=== PATIENT | male | born 2000 | race Hispanic/Latino ===

== ENCOUNTER 2023-07-13 16:02 | Emergency (ER) | payer OTHER ==
--- NOTE | 2023-07-13 17:36 | RAD REPORT ---
EXAM DESCRIPTION: US - Extremity Venous Uni Ltd - 07/13/2023 5:27 pm CLINICAL HISTORY: PAIN Leg swelling and edema. COMPARISON: <Comparisons> FINDINGS: Right lower extremity venous system was interrogated with Doppler technique. Normal flow, compressibility and augmentation was noted. There is no DVT present. IMPRESSION: No evidence of right lower extremity deep venous thrombosis.
--- NOTE | 2023-07-13 17:43 | ER ---
Nurse's Notes [facility] Name: Abraham Rojas Age: 23 yrs Sex: Male : 2000 Arrival Date: 07/13/2023 Time: 16:02 Bed 9 Private MD: Diagnosis: Right calf pain Presentation: 07/13 16:17 Chief complaint: Patient states: right calf pain onset yesterday morning.. Pt had cm10 ACL/MCL surgery 4 weeks ago. Coronavirus screen: Client denies travel out of the [place] in the last 14 days. At this time, the client does not indicate any symptoms associated with coronavirus-19. Ebola Screen: Patient denies travel to an Ebola-affected area in the 21 days before illness onset. No symptoms or risks identified at this time. Initial Sepsis Screen: Does the patient meet any 2 criteria? No. Patient's initial sepsis screen is negative. Does the patient have a suspected source of infection? No. Patient's initial sepsis screen is negative. Risk Assessment: Do you want to hurt yourself or someone else? Patient reports no desire to harm self or others. Onset of symptoms was July 13, 2023. 16:17 Method Of Arrival: Wheelchair cm10 16:17 Acuity: [place] 3 cm10 Historical: - Allergies: 16:19 No Known Allergies; cm10 - Home Meds: 16:19 None [Active]; cm10 - PMHx: 16:19 None; cm10 - PSHx: 16:19 ACL/ MCL Repair- Right knee; cm10 - Immunization history:: Adult Immunizations. - Social history:: Smoking status: Patient denies any tobacco usage or history of. Screenin:24 [facility] ED Fall Risk Assessment (Adult) History of falling in the last 3 months, ap3 including since admission No falls in past 3 months (0 pts) Confusion or Disorientation No (0 pts) Intoxicated or Sedated No (0 pts) Impaired Gait Yes (1 pt) Mobility Assist Device Used Yes (1 pt) Altered Elimination No (0 pt) Score/Fall Risk Level 0 - 2 = Low Risk. Abuse screen: Denies threats or abuse. Nutritional screening: No deficits noted. Tuberculosis screening: No symptoms or risk factors identified. Assessment: 16:24 General: Appears in no apparent distress. Behavior is calm, cooperative, appropriate ap3 for age. Pain: Complains of pain in right leg. Neuro: Level of Consciousness is awake, alert, obeys commands, Oriented to person, place, time, situation. Cardiovascular: Patient's skin is warm and dry. Respiratory: Airway is patent Respiratory effort is even, unlabored, Respiratory pattern is regular, symmetrical. Musculoskeletal: Range of motion: limited in right knee. Vital Signs: 16:17 BP 130 / 81; Pulse 81; Resp 18; Temp 98.1(TE); Pulse Ox 99% ; Weight 129.27 kg; Height cm10 5 ft. 7 in. ; Pain 4/10; 16:17 Body Mass Index 44.64 (129.27 kg, 170.18 cm) cm10 16:17 Pain Scale: Adult cm10 ED Course: 16:03 Patient arrived in ED. rg4 16:19 Светлана Laureano, RN is Primary Nurse. ap3 16:19 Triage completed. cm10 16:20 [facility]oshni Alaniz [facility]C [facility]. kb 16:20 Ander Chacon MD is Attending Physician. kb 16:20 Arm band placed on Patient placed in an exam room. cm10 16:25 Patient has correct armband on for positive identification. Bed in low position. Call ap3 light in reach. Adult w/ patient. Pulse ox on. NIBP on. 17:29 US Extremity Venous Unilateral Ltd In Process Unspecified. EDMS 18:13 Provided Education on: on education. ap3 18:13 No provider procedures requiring assistance completed. Patient did not have IV access ap3 during this emergency room visit. Administered Medications: No medications were administered Medication: 18:13 VIS not applicable for this client. ap3 Outcome: 17:43 Discharge ordered by . kb 18:13 Discharged to home with crutches, with family. ap3 18:13 Condition: good 18:13 Discharge instructions given to patient, family, Instructed on discharge instructions, follow up and referral plans. Demonstrated understanding of instructions, follow-up care. 18:13 Patient left the ED. ap3 Signatures: Dispatcher [employer] EDMS Roshni Alaniz FNP-C FNP-Ckb Garcia, Rubi rg4 Светлана Laureano RN RN ap3 Juliann Cruz RN RN cm10
--- NOTE | 2023-07-13 17:43 | EDPHYS ---
Physician Documentation [facility] Name: Abraham Rojas Age: 23 yrs Sex: Male : 2000 Arrival Date: 07/13/2023 Time: 16:02 Bed 9 Private MD: BRITTANY Physician Ander Chacon HPI: 07/13 17:22 This 23 yrs old Male presents to ER via Wheelchair with complaints of Post kb Surgical Pain. 17:22 The patient presents with pain. The complaints affect the right calf. Context: the kb patient is able to ambulate. Onset: The symptoms/episode began/occurred yesterday. Modifying factors: The symptoms are alleviated by nothing. the symptoms are aggravated by nothing. Associated signs and symptoms: The patient has no apparent associated signs or symptoms. Treatment prior to arrival includes: mann wrap. Severity of symptoms: At their worst the symptoms were mild, moderate, in the emergency department the symptoms are unchanged. The patient has not experienced similar symptoms in the past. The patient has been recently seen by a physician:. Patient reports he had knee surgery 4 weeks ago and developed calf pain yesterday. Called his orthopedist this morning and was told to come to the ER for evaluation.. Historical: - Allergies: 16:19 No Known Allergies; cm10 - Home Meds: 16:19 None [Active]; cm10 - PMHx: 16:19 None; cm10 - PSHx: 16:19 ACL/ MCL Repair- Right knee; cm10 - Immunization history:: Adult Immunizations. - Social history:: Smoking status: Patient denies any tobacco usage or history of. ROS: 16:28 Constitutional: Negative for fever, chills, and weight loss. kb 16:28 MS/extremity: Positive for pain, of the right calf. 16:28 All other systems are negative. Exam: 16:28 Constitutional: This is a well developed, well nourished patient who is awake, alert, kb and in no acute distress. Head/Face: Normocephalic, atraumatic. ENT: Moist Mucous membranes Cardiovascular: Regular rate and rhythm with a normal S1 and S2. No gallops, murmurs, or rubs. No pulse deficits. Respiratory: Respirations even and unlabored. No increased work of breathing. Talking in full sentences Skin: Warm, dry with normal turgor. Normal color. Neuro: Awake and alert, GCS 15, oriented to person, place, time, and situation. Moves all extremities. Normal gait. 17:22 Musculoskeletal/extremity: Extremities: grossly normal except: noted in the right calf: kb pain, There is no evidence of tenderness, ROM: intact in all extremities, Circulation is intact in all extremities. Sensation intact. Weight bearing: can bear weight with assistance only, uses crutches, Observed muscle spasm and calf during exam. Vital Signs: 16:17 BP 130 / 81; Pulse 81; Resp 18; Temp 98.1(TE); Pulse Ox 99% ; Weight 129.27 kg; Height cm10 5 ft. 7 in. ; Pain 4/10; 16:17 Body Mass Index 44.64 (129.27 kg, 170.18 cm) cm10 16:17 Pain Scale: Adult cm10 MDM: 16:20 Patient medically screened. kb 16:29 Data reviewed: vital signs, nurses notes. kb 17:21 Differential diagnosis: DVT, muscle spasm, strain. kb 17:40 Counseling: I had a detailed discussion with the patient and/or guardian regarding the kb historical points, exam findings, and any diagnostic results supporting the discharge/admit diagnosis, radiology results, the need for outpatient follow up, a orthopedic surgeon, to return to the emergency department if symptoms worsen or persist or if there are any questions or concerns that arise at home. 07/13 16:21 Order name: Extremity Venous Unilateral Ltd; Complete Time: 17:40 kb Administered Medications: No medications were administered Disposition Summary: 07/13/23 17:43 Discharge Ordered Location: Home Condition: Stable kb Diagnosis - Right calf pain kb Followup: kb - With: Emergency Department - When: As needed - Reason: Worsening of condition Followup: kb - With: Private Physician - When: 2 - 3 days - Reason: Recheck today's complaints, Continuance of care, Re-evaluation by your physician Discharge Instructions: - Discharge Summary Sheet kb - Musculoskeletal Pain kb Forms: - Medication Reconciliation Form kb - Thank You Letter kb - Antibiotic Education kb - Prescription Opioid Use kb - Patient Portal Instructions kb - Leadership Thank You Letter kb Signatures: Dispatcher [employer] Roshni Bowden, VENKATC ZEESHAN-Juliann Morris, RN RN cm10
[2023-07-13 18:20] VITALS: BP 130/81; TEMP 98.1; O2SAT 99
== END 2023-07-13 18:13 | disposition home or self-care (01) ==
LOC: ER 16:02
DX: M79.661 Pain in right lower leg (principal); Z98.890 Other specified postprocedural states
CPT/HCPCS: 93971